=== PATIENT | female | born 1980 | race Caucasian/White ===

== ENCOUNTER 2020-07-25 05:58 | Emergency (ER) | payer MEDICAID, OTHER ==
[~2020-07-25] VITALS: Ht 165.1 cm; Wt 71.4 kg
--- NOTE | 2020-07-25 06:25 | NUR ---
PT C/O ABD PAIN, LOSS OF TASTE, SOB AT TIMES, N/V, FEVERS, BODY ACHES, FATIGUE
[2020-07-25] MEDS ORDERED: ONDANSETRON 2MG/ML, 2ML ONE (06:29)
[2020-07-25] MEDS ORDERED: ONDANSETRON 2MG/ML, 2ML IVPush ONE (06:30)
[2020-07-25] MEDS ORDERED: KETOROLAC 30 MG/1 ML IVPush ONE (06:30)
[2020-07-25] MEDS ORDERED: SODIUM CHLORIDE 0.9% 1,000ML IVBOLUS ONE (06:30)
[2020-07-25] MEDS ORDERED: KETOROLAC 30 MG/1 ML ONE (06:46)
[2020-07-25 06:48] LABS: BASOPHILS % (AUTO) 1 % (0-1); EOSINOPHILS % (AUTO) 0 % (1-7); LYMPHOCYTES % (AUTO) 6 % (22-44); MEAN CORPUSCULAR HEMOGLOBIN 30.9 pg (27.0-34.8); MEAN CORPUSCULAR HGB CONC 34.1 g/dL (32.4-35.8); MEAN PLATELET VOLUME 9.2 fL (7.4-10.4); MONOCYTES % (AUTO) 6 % (2-9); NEUTROPHILS % (AUTO) 87 % (42-75); PLATELET COUNT 167 x10^3/uL (130-400); RED BLOOD COUNT 3.69 x10^6/uL (3.82-5.3); RED CELL DISTRIBUTION WIDTH 13.8 % (9.6-15.2)
[2020-07-25 06:49] LABS: MD NO
--- NOTE | 2020-07-25 06:50 | NUR ---
REPORT GIVEN TO RODOLFO OVERTON
[2020-07-25] MEDS ORDERED: LISI-606 PO (06:56)
[2020-07-25] MEDS ORDERED: EMPA10TA PO (06:56)
[2020-07-25] MEDS ORDERED: ACETAMINOPHEN 500 MG TABLET ONE (06:57)
--- NOTE | 2020-07-25 06:57 | NUR ---
REPORT FROM FRANCISCA OVERTON. PT MEDICATED, A*OX4 GCS 15 LYING CALMLY IN BED 10/10 ABD PAIN AND NAUSEA.
[2020-07-25] MEDS ORDERED: ACETAMINOPHEN 500 MG TABLET PO ONE (07:00)
[2020-07-25 07:01] LABS: ALBUMIN 2.4 g/dL (3.4-5.0); ANION GAP 9 mmol/L (5-15); CALCIUM 8.7 mg/dL (8.5-10.1); CHLORIDE 97 mmol/L (98-107); CREATININE 1.33 mg/dL (0.55-1.02)
[2020-07-25 07:30] LABS: MICROSCOPIC INDICATED
--- NOTE | 2020-07-25 07:32 | NUR ---
LATE ENTRY. MEDICATED FOR TEMP W TYLENOL AND UA WAKLED TO LAB. CXR CLEAR.
[2020-07-25] MEDS ORDERED: CEFTRIAXONE PMX 1GM/50ML 50 ML IV ONE (08:00)
[2020-07-25] MEDS ORDERED: OMNIPAQUE 350 MG/ML, 100ML BOTTLE ONE (08:21)
--- NOTE | 2020-07-25 08:27 | NUR ---
pt to and from ct. as
[2020-07-25] MEDS ORDERED: CEFTRIAXONE PMX 1GM/50ML 50 ML ONE (08:40)
[2020-07-25 10:01] VITALS: BP 95/54
== END 2020-07-25 10:41 | disposition home or self-care (01) ==
LOC: ED 08:39
DX: N10 Acute pyelonephritis (principal); D72.819 Decreased white blood cell count, unspecified; R50.9 Fever, unspecified; R00.0 Tachycardia, unspecified; I10 Essential (primary) hypertension; E11.9 Type 2 diabetes mellitus without complications
CPT/HCPCS: 36415; 71045; 74177; 80048; 81001; 82040; 83605; 84145; 84703; 85025; 87077; 87086; 93005; 96361; 96365; 96375; 99285; J0696; J1885; J2405; J7030; Q9967; 87186

== ENCOUNTER 2020-08-17 16:31 | Emergency (ER) | payer MEDICAID, OTHER ==
[~2020-08-17] VITALS: Ht 165.1 cm; Wt 72.5 kg
[~2020-08-17 16:31] MED LIST: EMPA10TA PO; LISI-606 PO
[2020-08-17] MEDS ORDERED: SODIUM CHLORIDE 0.9% 1,000ML IVBOLUS ONE ×2 (17:00→20:00)
[2020-08-17] MEDS ORDERED: ACETAMINOPHEN 500 MG TABLET PO ONE (17:00)
[2020-08-17] MEDS ORDERED: ACETAMINOPHEN 500 MG TABLET ONE (17:26)
[2020-08-17] MEDS ORDERED: MORPHINE SULFATE 4 MG/ML, 1ML ONE (17:45)
[2020-08-17] MEDS ORDERED: ONDANSETRON 2MG/ML, 2ML ONE (17:45)
[2020-08-17] MEDS ORDERED: ONDANSETRON 2MG/ML, 2ML IVPush ONE (18:00)
[2020-08-17] MEDS ORDERED: MORPHINE SULFATE 4 MG/ML, 1ML IVPush PRN (18:00)
[2020-08-17 18:10] LABS: BASOPHILS % (AUTO) 0 % (0-1); EOSINOPHILS % (AUTO) 0 % (1-7); LYMPHOCYTES % (AUTO) 6 % (22-44); MEAN CORPUSCULAR HEMOGLOBIN 31.1 pg (27.0-34.8); MEAN CORPUSCULAR HGB CONC 34.2 g/dL (32.4-35.8); MEAN PLATELET VOLUME 9.7 fL (7.4-10.4); MONOCYTES % (AUTO) 4 % (2-9); NEUTROPHILS % (AUTO) 89 % (42-75); PLATELET COUNT 123 x10^3/uL (130-400); RED BLOOD COUNT 3.23 x10^6/uL (3.82-5.3); RED CELL DISTRIBUTION WIDTH 14.7 % (9.6-15.2)
[2020-08-17 18:20] LABS: ALANINE AMINOTRANSFERASE 13 U/L (12-78); ALBUMIN 2.8 g/dL (3.4-5.0); ANION GAP 8 mmol/L (5-15); CHLORIDE 105 mmol/L (98-107); CREATININE 1.37 mg/dL (0.55-1.02)
[2020-08-17 18:25] LABS: ALKALINE PHOSPHATASE 82 U/L (45-117); BILIRUBIN,TOTAL 1.8 mg/dL (0.2-1.0); TOTAL PROTEIN 7.8 g/dL (6.4-8.2)
[2020-08-17 18:30] LABS: MD SCAN
[2020-08-17 19:48] LABS: MICROSCOPIC AUTO
[2020-08-17] MEDS ORDERED: CEFTRIAXONE PMX 1GM/50ML 50 ML IVPB ONE (20:00)
[2020-08-17] MEDS ORDERED: CEFTRIAXONE PMX 1GM/50ML 50 ML ONE (20:05)
[2020-08-17 20:29] VITALS: BP 90/52
== END 2020-08-17 20:42 | disposition home or self-care (01) ==
LOC: ED 17:31
DX: A41.9 Sepsis, unspecified organism (principal); N30.00 Acute cystitis without hematuria; R11.2 Nausea with vomiting, unspecified; E11.9 Type 2 diabetes mellitus without complications; I10 Essential (primary) hypertension; R00.0 Tachycardia, unspecified; R50.9 Fever, unspecified; R10.9 Unspecified abdominal pain
CPT/HCPCS: 36415; 71045; 76770; 80053; 81001; 83605; 83690; 84145; 84703; 85025; 87040; 87077; 87086; 87186; 93005; 96361; 96365; 96375; 99285; J0696; J2270; J2405; J7030

== ENCOUNTER 2020-08-18 12:38 | Inpatient (IN) | payer MEDICAID, OTHER ==
[~2020-08-18] VITALS: Ht 165.1 cm; Wt 72.8 kg
--- NOTE | 2020-08-18 12:53 | NUR ---
patient was called to come in for what she states as blood infection/sepsis. was here yesterday for uti, and discharged. came back in after notified.
--- NOTE | 2020-08-18 13:50 | NUR ---
BREAK RN- PT RESTING IN BED, CALL LIGHT IN REACH
[2020-08-18] MEDS ORDERED: CEFTRIAXONE PMX 2GM/50ML 50 ML ONE (13:54)
[2020-08-18] MEDS ORDERED: CEFTRIAXONE PMX 2GM/50ML 50 ML IVPB ONE (14:00)
[2020-08-18] MEDS ORDERED: CEFTRIAXONE PMX 2GM/50ML 50 ML IVPB SCH (14:00)
[2020-08-18 14:13] LABS: BASOPHILS % (AUTO) 0 % (0-1); EOSINOPHILS % (AUTO) 1 % (1-7); LYMPHOCYTES % (AUTO) 11 % (22-44); MEAN CORPUSCULAR HEMOGLOBIN 31.3 pg (27.0-34.8); MEAN CORPUSCULAR HGB CONC 33.4 g/dL (32.4-35.8); MEAN PLATELET VOLUME 9.7 fL (7.4-10.4); MONOCYTES % (AUTO) 6 % (2-9); NEUTROPHILS % (AUTO) 82 % (42-75); PLATELET COUNT 105 x10^3/uL (130-400); RED BLOOD COUNT 3.01 x10^6/uL (3.82-5.3); RED CELL DISTRIBUTION WIDTH 14.8 % (9.6-15.2)
[2020-08-18 14:15] LABS: MD NO
[2020-08-18 14:27] LABS: ALBUMIN 2.8 g/dL (3.4-5.0); ANION GAP 7 mmol/L (5-15); CALCIUM 8.3 mg/dL (8.5-10.1); CHLORIDE 106 mmol/L (98-107); CREATININE 1.51 mg/dL (0.55-1.02)
--- NOTE | 2020-08-18 15:09 | NUR ---
WENT TO CT
[2020-08-18] MEDS ORDERED: OMNIPAQUE 350 MG/ML, 100ML BOTTLE ONE (15:16)
--- NOTE | 2020-08-18 15:26 | NUR ---
PATIENT HAVING A FEVER, AND HR UP, LET KNOW
[2020-08-18] MEDS ORDERED: ACETAMINOPHEN 325 MG TABLET ONE (15:38)
--- NOTE | 2020-08-18 15:52 | NUR ---
MD IN ROOM, PATIENT FEELING POORLY, GOT VERBAL ORDER FOR AND STARTED TYLENOL AND FLUIDS. PATIENT AOX4.
[2020-08-18] MEDS: SODIUM CHLORIDE 0.9% 1,000 ML IV SCH (15:59)
[2020-08-18] MEDS ORDERED: DOCUSATE 100 MG CAPSULE PO PRN (16:00)
[2020-08-18] MEDS ORDERED: SODIUM CHLORIDE FLUSH 10ML SYR IVF PRN (16:00)
[2020-08-18] MEDS ORDERED: PHARMACY MAY ADJ FOR RENAL FX MC PRN (16:00)
[2020-08-18] MEDS ORDERED: ACETAMINOPHEN 325 MG TABLET PO ONE (16:00)
[2020-08-18 16:19] LABS: INTERNATIONAL NORMALIZED RATIO 0.99 (0.93-1.1); PROTHROMBIN TIME 10.6 Seconds (9.6-11.5)
[2020-08-18 16:43] LABS: ALBUMIN 2.7 g/dL (3.4-5.0); BILIRUBIN, DIRECT 0.4 mg/dL (0.1-0.2)
[2020-08-18 16:45] LABS: BILIRUBIN,INDIRECT 0.9 mg/dL (0.0-2.0); BILIRUBIN,TOTAL 1.3 mg/dL (0.2-1.0); TOTAL PROTEIN 7.6 g/dL (6.4-8.2)
--- NOTE | 2020-08-18 16:54 | NUR ---
CALLED FOR REPORT AND THEY ARE NOT READY YET
--- NOTE | 2020-08-18 17:05 | NUR ---
REPORT ON PATIENT TO [facility]. PATIENT IN BED, RAILS UP. AT BEDSIDE. DENIES PAIN.
--- NOTE | 2020-08-18 17:16 | NUR ---
PATIENT MD CORDOVA CALLED AND SHE IS TO STAY NPO AND GO TO IR FOR DRAINAGE OF RENAL ABCESS. LET PATIENT KNOW AND CALLING NURSE UPSTAIRS.
--- NOTE | 2020-08-18 17:21 | NUR ---
MD CALLED BACK AND IR STATES ABCESS NOT DRAINABLE JUST IV ABX. WILL LET PATIENT KNOW..
[2020-08-18] MEDS: INSULIN LISPRO 100 UNITS/ML, PEN SQ-INSULIN SCH ×2 (18:25→20:22)
[2020-08-18 18:45] VITALS: BP 91/57
[2020-08-18 19:48] VITALS: BP 99/64
[2020-08-18] MEDS: PIPERACILLIN/TAZO/PMX 3.375GM 50 ML IV SCH (20:08)
[2020-08-19 00:54] VITALS: BP 99/64
[2020-08-19 01:20] LABS: AMPHETAMINE SCREEN, URINE Negative (Negative); BARBITURATE SCREEN, URINE Negative (Negative); BENZODIAZEPINE SCREEN, URINE Negative (Negative); CANNABINOID SCREEN, URINE Negative (Negative); COCAINE SCREEN, URINE Negative (Negative); METHADONE SCREEN, URINE Negative (Negative); OPIATE SCREEN, URINE Negative (Negative)
[2020-08-19] MEDS: PIPERACILLIN/TAZO/PMX 3.375GM 50 ML IV SCH ×4 (02:13→20:05)
[2020-08-19] MEDS: ONDANSETRON 2MG/ML, 2ML IVPush PRN ×2 (03:58→20:17)
[2020-08-19] MEDS: ACETAMINOPHEN 325 MG TABLET PO PRN ×3 (03:58→20:09)
[2020-08-19] MEDS: SODIUM CHLORIDE 0.9% 1,000 ML IV SCH ×2 (05:00→13:10)
[2020-08-19 05:14] LABS: BASOPHILS % (AUTO) 0 % (0-1); EOSINOPHILS % (AUTO) 1 % (1-7); LYMPHOCYTES % (AUTO) 14 % (22-44); MEAN CORPUSCULAR HEMOGLOBIN 31.7 pg (27.0-34.8); MEAN CORPUSCULAR HGB CONC 34.9 g/dL (32.4-35.8); MEAN PLATELET VOLUME 9.4 fL (7.4-10.4); MONOCYTES % (AUTO) 4 % (2-9); NEUTROPHILS % (AUTO) 81 % (42-75); PLATELET COUNT 99 x10^3/uL (130-400); RED BLOOD COUNT 2.77 x10^6/uL (3.82-5.3); RED CELL DISTRIBUTION WIDTH 14.9 % (9.6-15.2)
[2020-08-19 05:15] LABS: MD NO
[2020-08-19 05:27] LABS: ALBUMIN 2.5 g/dL (3.4-5.0); ANION GAP 9 mmol/L (5-15); CALCIUM 7.8 mg/dL (8.5-10.1); CHLORIDE 108 mmol/L (98-107)
[2020-08-19 05:40] LABS: ALANINE AMINOTRANSFERASE 11 U/L (12-78); ALKALINE PHOSPHATASE 89 U/L (45-117); CREATININE 0.94 mg/dL (0.55-1.02); TOTAL PROTEIN 7.2 g/dL (6.4-8.2)
[2020-08-19 06:23] VITALS: BP 97/60
[2020-08-19] MEDS: INSULIN LISPRO 100 UNITS/ML, PEN SQ-INSULIN SCH ×4 (07:54→20:29)
[2020-08-19 13:25] VITALS: BP 131/86
[2020-08-19 19:48] VITALS: BP 150/92
[2020-08-19 23:17] VITALS: BP 113/75
[2020-08-20 00:51] VITALS: BP 120/76
[2020-08-20] MEDS: PIPERACILLIN/TAZO/PMX 3.375GM 50 ML IV SCH ×2 (02:16→07:57)
[2020-08-20 05:53] LABS: BASOPHILS % (AUTO) 0 % (0-1); EOSINOPHILS % (AUTO) 2 % (1-7); LYMPHOCYTES % (AUTO) 19 % (22-44); MEAN CORPUSCULAR HEMOGLOBIN 31.5 pg (27.0-34.8); MEAN PLATELET VOLUME 9.5 fL (7.4-10.4); MONOCYTES % (AUTO) 8 % (2-9); NEUTROPHILS % (AUTO) 71 % (42-75); PLATELET COUNT 104 x10^3/uL (130-400); RED BLOOD COUNT 2.45 x10^6/uL (3.82-5.3); RED CELL DISTRIBUTION WIDTH 14.7 % (9.6-15.2)
[2020-08-20 06:01] LABS: MD NO
[2020-08-20 06:02] LABS: ANION GAP 10 mmol/L (5-15); CALCIUM 7.8 mg/dL (8.5-10.1); CHLORIDE 108 mmol/L (98-107)
[2020-08-20 06:05] LABS: CREATININE 0.81 mg/dL (0.55-1.02)
[2020-08-20 06:26] VITALS: BP 134/81
[2020-08-20] MEDS: INSULIN LISPRO 100 UNITS/ML, PEN SQ-INSULIN SCH ×4 (07:00→21:48)
[2020-08-20] MEDS: CEFTRIAXONE PMX 2GM/50ML 50 ML IVPB SCH (12:17)
[2020-08-20 13:56] VITALS: BP 129/79
[2020-08-20] MEDS: SODIUM CHLORIDE 0.9% 1,000 ML IV SCH ×2 (15:06→23:21)
[2020-08-20 19:35] VITALS: BP 102/69
[2020-08-20] MEDS: ACETAMINOPHEN 325 MG TABLET PO PRN (21:48)
[2020-08-20] MEDS: INSULIN GLARGINE 100 UNITS/ML, PEN SQ-INSULIN SCH (22:17)
[2020-08-21 00:27] VITALS: BP 113/69
[2020-08-21 06:32] VITALS: BP 145/87
[2020-08-21 08:03] LABS: BASOPHILS % (AUTO) 1 % (0-1); EOSINOPHILS % (AUTO) 2 % (1-7); LYMPHOCYTES % (AUTO) 23 % (22-44); MEAN CORPUSCULAR HEMOGLOBIN 31.7 pg (27.0-34.8); MEAN CORPUSCULAR HGB CONC 34.6 g/dL (32.4-35.8); MEAN PLATELET VOLUME 8.8 fL (7.4-10.4); MONOCYTES % (AUTO) 8 % (2-9); NEUTROPHILS % (AUTO) 66 % (42-75); PLATELET COUNT 135 x10^3/uL (130-400); RED BLOOD COUNT 2.79 x10^6/uL (3.82-5.3); RED CELL DISTRIBUTION WIDTH 14.4 % (9.6-15.2)
[2020-08-21 08:05] LABS: MD NO
[2020-08-21 08:13] LABS: ANION GAP 7 mmol/L (5-15); CALCIUM 8.8 mg/dL (8.5-10.1); CHLORIDE 112 mmol/L (98-107); CREATININE 0.75 mg/dL (0.55-1.02)
[2020-08-21] MEDS: INSULIN LISPRO 100 UNITS/ML, PEN SQ-INSULIN SCH ×4 (08:35→21:47)
[2020-08-21] MEDS: ACETAMINOPHEN 325 MG TABLET PO PRN ×2 (08:39→16:05)
[2020-08-21] MEDS ORDERED: TRAM50TA2 PO (11:41)
[2020-08-21] MEDS ORDERED: INSU100I13 SQ-INSULIN ×2 (11:41)
[2020-08-21 12:35] VITALS: BP 138/87
[2020-08-21] MEDS: CEFTRIAXONE PMX 2GM/50ML 50 ML IVPB SCH (15:12)
[2020-08-21 18:36] VITALS: BP 128/80
[2020-08-21] MEDS: INSULIN GLARGINE 100 UNITS/ML, PEN SQ-INSULIN SCH (21:48)
[2020-08-22 01:19] VITALS: BP 122/74
[2020-08-22] MEDS: ACETAMINOPHEN 325 MG TABLET PO PRN (06:44)
[2020-08-22 06:54] VITALS: BP 149/87
[2020-08-22 06:58] LABS: BASOPHILS % (AUTO) 1 % (0-1); EOSINOPHILS % (AUTO) 2 % (1-7); LYMPHOCYTES % (AUTO) 25 % (22-44); MEAN CORPUSCULAR HEMOGLOBIN 31.3 pg (27.0-34.8); MEAN CORPUSCULAR HGB CONC 34.4 g/dL (32.4-35.8); MEAN PLATELET VOLUME 8.6 fL (7.4-10.4); MONOCYTES % (AUTO) 9 % (2-9); NEUTROPHILS % (AUTO) 63 % (42-75); PLATELET COUNT 165 x10^3/uL (130-400); RED CELL DISTRIBUTION WIDTH 14.6 % (9.6-15.2)
[2020-08-22 06:59] LABS: MD NO
[2020-08-22 07:02] LABS: ALANINE AMINOTRANSFERASE 15 U/L (12-78); ALBUMIN 2.6 g/dL (3.4-5.0); ANION GAP 7 mmol/L (5-15); CALCIUM 8.4 mg/dL (8.5-10.1); CHLORIDE 109 mmol/L (98-107); CREATININE 0.67 mg/dL (0.55-1.02)
[2020-08-22 07:04] LABS: ALKALINE PHOSPHATASE 125 U/L (45-117); BILIRUBIN,TOTAL 0.3 mg/dL (0.2-1.0); TOTAL PROTEIN 7.8 g/dL (6.4-8.2)
[2020-08-22] MEDS: INSULIN LISPRO 100 UNITS/ML, PEN SQ-INSULIN SCH ×4 (07:35→20:51)
[2020-08-22] MEDS ORDERED: POTASSIUM CHLORIDE 20 MEQ TAB.ER.PRT PO ONE (08:00)
[2020-08-22] MEDS: GABAPENTIN 300 MG CAPSULE PO SCH ×3 (08:29→20:38)
[2020-08-22] MEDS: CEFTRIAXONE PMX 2GM/50ML 50 ML IVPB SCH (11:33)
[2020-08-22] MEDS: LISINOPRIL 5 MG TABLET PO SCH (12:42)
[2020-08-22] MEDS: ENOXAPARIN 40 MG/0.4 ML SQ SCH (12:42)
[2020-08-22 13:45] VITALS: BP 126/83
[2020-08-22 19:47] VITALS: BP 127/82
[2020-08-22] MEDS ORDERED: INSULIN GLARGINE 100 UNITS/ML, PEN SQ-INSULIN SCH (21:00)
[2020-08-23 00:52] VITALS: BP 135/87
[2020-08-23 06:01] LABS: BASOPHILS % (AUTO) 1 % (0-1); EOSINOPHILS % (AUTO) 2 % (1-7); LYMPHOCYTES % (AUTO) 27 % (22-44); MEAN CORPUSCULAR HEMOGLOBIN 31.4 pg (27.0-34.8); MEAN CORPUSCULAR HGB CONC 34.7 g/dL (32.4-35.8); MEAN PLATELET VOLUME 8.4 fL (7.4-10.4); MONOCYTES % (AUTO) 9 % (2-9); NEUTROPHILS % (AUTO) 62 % (42-75); PLATELET COUNT 192 x10^3/uL (130-400); RED BLOOD COUNT 2.99 x10^6/uL (3.82-5.3); RED CELL DISTRIBUTION WIDTH 14.4 % (9.6-15.2)
[2020-08-23 06:04] LABS: ALANINE AMINOTRANSFERASE 13 U/L (12-78); ALBUMIN 2.7 g/dL (3.4-5.0); ANION GAP 6 mmol/L (5-15); CALCIUM 9.1 mg/dL (8.5-10.1); CHLORIDE 108 mmol/L (98-107); CREATININE 0.78 mg/dL (0.55-1.02)
[2020-08-23 06:06] LABS: MD NO
[2020-08-23 06:09] LABS: ALKALINE PHOSPHATASE 130 U/L (45-117); BILIRUBIN,TOTAL 0.4 mg/dL (0.2-1.0)
[2020-08-23] MEDS: LISINOPRIL 5 MG TABLET PO SCH (07:54)
[2020-08-23] MEDS: INSULIN LISPRO 100 UNITS/ML, PEN SQ-INSULIN SCH ×3 (07:56→16:00)
[2020-08-23] MEDS: GABAPENTIN 300 MG CAPSULE PO SCH ×2 (07:57→16:00)
[2020-08-23] MEDS: ACETAMINOPHEN 325 MG TABLET PO PRN (08:02)
[2020-08-23 09:46] VITALS: BP 102/66
[2020-08-23] MEDS: CEFTRIAXONE PMX 2GM/50ML 50 ML IVPB SCH (12:05)
[2020-08-23] MEDS: ENOXAPARIN 40 MG/0.4 ML SQ SCH (12:38)
[2020-08-23 13:10] VITALS: BP 109/73
[2020-08-23] MEDS ORDERED: INSU100I11 SQ-INSULIN (14:47)
[2020-08-23] MEDS ORDERED: INSU100I13 SQ-INSULIN (14:47)
[2020-08-23] MEDS ORDERED: GABA300C PO (14:47)
[2020-08-23] MEDS ORDERED: LISI5TAB7 PO (14:47)
== END 2020-08-23 16:54 | disposition home or self-care (01) | DRG 720 ==
LOC: ED 13:46 → EDIP 15:40 → 3N 17:37 → DCLOUNGE 08-23 16:39
PROVIDERS: ADMIT Internal Medicine; ATTEND Hospitalist
PROC: 02HV33Z Insertion of Infusion Device into Superior Vena Cava, Percutaneous Approach (ICD-10-PCS; principal; 2020-08-21)
PROC: B5181ZA Fluoroscopy of Superior Vena Cava using Low Osmolar Contrast, Guidance (ICD-10-PCS; 2020-08-21)
PROC: B548ZZA Ultrasonography of Superior Vena Cava, Guidance (ICD-10-PCS; 2020-08-21)
DX: A41.59 Other Gram-negative sepsis (principal); C91.01 Acute lymphoblastic leukemia, in remission; N17.9 Acute kidney failure, unspecified; N15.1 Renal and perinephric abscess; N10 Acute pyelonephritis; Z89.421 Acquired absence of other right toe(s); Z56.0 Unemployment, unspecified; E86.0 Dehydration; I10 Essential (primary) hypertension; E11.9 Type 2 diabetes mellitus without complications; D69.6 Thrombocytopenia, unspecified; D63.8 Anemia in other chronic diseases classified elsewhere; K80.20 Calculus of gallbladder without cholecystitis without obstruction; Z79.899 Other long term (current) drug therapy
CPT/HCPCS: 36415; 36573; 71045; 74160; 80048; 80053; 80076; 80307; 82040; 82962; 83036; 83540; 83550; 83605; 83735; 84100; 84443; 85014; 85018; 85025; 85384; 85610; 86850; 86900; 86923; 87040; 96374; 99285; G0378; J0696; J2405; J2543; Q9967; C1751; J1815; J7030

== ENCOUNTER 2020-09-12 16:27 | Outpatient (CLI) | payer MEDICAID ==
[~2020-09-12 16:27] MED LIST changes: +GABA300C PO; +INSU100I11 SQ-INSULIN; +INSU100I13 SQ-INSULIN; +LISI5TAB7 PO; +TRAM50TA2 PO
[2020-09-12] MEDS ORDERED: OMNIPAQUE 350 MG/ML, 100ML BOTTLE ONE (16:30)
== END 2020-09-12 23:59 | disposition home or self-care (01) ==
LOC: RAD 16:27
PROVIDERS: ATTEND Internal Medicine Infectious Disease
DX: N83.202 Unspecified ovarian cyst, left side (principal); B96.1 Klebsiella pneumoniae [K. pneumoniae] as the cause of diseases classified elsewhere
CPT/HCPCS: 74177; Q9967

== ENCOUNTER 2020-09-18 11:16 | Emergency (ER) | payer MEDICAID ==
[~2020-09-18] VITALS: Ht 165.1 cm; Wt 70.9 kg
[2020-09-18] MEDS ORDERED: SODIUM CHLORIDE 0.9% 1,000ML IVBOLUS ONE (12:00)
[2020-09-18] MEDS ORDERED: SODIUM CHLORIDE FLUSH 10ML SYR IVF ONE (12:00)
[2020-09-18] MEDS ORDERED: LOPERAMIDE 2 MG CAPSULE PO ONE (12:00)
[2020-09-18] MEDS ORDERED: LOPERAMIDE 2 MG CAPSULE ONE (12:08)
--- NOTE | 2020-09-18 12:14 | NUR ---
PT MEDICATED PER EMAR. PT TOLERATED WELL. BEFORE IV START, PT AMB TO BR WITH STEADY GAIT.
[2020-09-18 12:16] LABS: BASOPHILS % (AUTO) 0 % (0-1); EOSINOPHILS % (AUTO) 2 % (1-7); LYMPHOCYTES % (AUTO) 33 % (22-44); MD NO; MEAN CORPUSCULAR HEMOGLOBIN 31.8 pg (27.0-34.8); MEAN CORPUSCULAR HGB CONC 33.3 g/dL (32.4-35.8); MEAN PLATELET VOLUME 9.4 fL (7.4-10.4); MONOCYTES % (AUTO) 7 % (2-9); NEUTROPHILS % (AUTO) 58 % (42-75); PLATELET COUNT 166 x10^3/uL (130-400); RED BLOOD COUNT 3.83 x10^6/uL (3.82-5.3); RED CELL DISTRIBUTION WIDTH 16.6 % (9.6-15.2)
[2020-09-18 12:27] LABS: ALANINE AMINOTRANSFERASE 40 U/L (12-78); ALBUMIN 3.7 g/dL (3.4-5.0); ANION GAP 8 mmol/L (5-15); CALCIUM 8.2 mg/dL (8.5-10.1); CHLORIDE 114 mmol/L (98-107); CREATININE 1.94 mg/dL (0.55-1.02)
[2020-09-18 12:29] LABS: ALKALINE PHOSPHATASE 100 U/L (45-117); BILIRUBIN,TOTAL 0.8 mg/dL (0.2-1.0); TOTAL PROTEIN 8.9 g/dL (6.4-8.2)
--- NOTE | 2020-09-18 13:21 | NUR ---
PT RESTING, VSS. FLUIDS COMPLETE
--- NOTE | 2020-09-18 14:59 | NUR ---
PT AMUBLATED TO BATHROOM. UNABLE TO PROVIDE STOOL SAMPLE
[2020-09-18 15:54] VITALS: BP 108/69
--- NOTE | 2020-09-18 15:55 | NUR ---
Patient given discharge instructions and they have confirmed that they understand the instructions. Patient ambulatory with steady gait.
== END 2020-09-18 15:56 | disposition home or self-care (01) ==
LOC: ED 11:32
DX: R19.7 Diarrhea, unspecified (principal); E86.0 Dehydration; N28.9 Disorder of kidney and ureter, unspecified; I10 Essential (primary) hypertension; E11.9 Type 2 diabetes mellitus without complications
CPT/HCPCS: 36415; 80053; 85025; 96360; 96361; 99283; J7030

== ENCOUNTER 2020-11-27 11:40 | Outpatient (CLI) | payer MEDICAID | END 2020-11-27 23:59 | disposition home or self-care (01) | LOC: RAD 11:40 | PROVIDERS: ATTEND Physician Assistant | DX: Z02.9 Encounter for administrative examinations, unspecified (principal) ==

== ENCOUNTER → 2020-12-05 | Outpatient (CLI) | payer MEDICAID ==
[~2020-12-05] MED LIST changes: +OMNIPAQUE 350 MG/ML, 100ML BOTTLE ONE
== END | disposition home or self-care (01) ==
LOC: CFH 15:25
PROVIDERS: ATTEND Physician Assistant
DX: K80.20 Calculus of gallbladder without cholecystitis without obstruction (principal); N15.1 Renal and perinephric abscess; M43.8X4 Other specified deforming dorsopathies, thoracic region
CPT/HCPCS: 74177; Q9967